=== PATIENT | female | born 1980 | race Caucasian/White ===

== ENCOUNTER 2020-03-13 15:20 | Emergency (ER) | payer MEDICAID ==
[~2020-03-13] VITALS: Ht 154.9 cm; Wt 93.4 kg
[2020-03-13 15:26] VITALS: BP 110/60
--- NOTE | 2020-03-13 15:30 | NUR ---
WAIT AT LOBBY. HANDED ON URINE CUP.
--- NOTE | 2020-03-13 15:44 | NUR ---
PT AMBULATED TO BED 4 WITH STEADY GAIT. RN AT BEDSIDE.
--- NOTE | 2020-03-13 15:53 | NUR ---
39 YO FEMALE PRESENTS WITH 19 WKS OF C/O URGENCY, FREQUENCY, AND BURNING SENSATION OF URINATION, FEVER/CHILLS, LEFT FLANK PAIN/TENDERNESS FOR 2 DAYS. CVAT POSITIVE ON LEFT FLANK AREA. DENIES HEMATURIA OR DYSURIA. DENIES HX OF KIDNEY STONES, VAGINAL BLEEDING OR ABNORMAL DISCHARGE. REPORTS A0, UNKNOWN VENKATA. LMP:10/31/2019. PMH: HYPOTHYROIDISM
[2020-03-13] MEDS ORDERED: cefTRIAXone 1,000 MG in LIDOCAINE MPF 1% 2.1 ML IM ONE (16:05)
[2020-03-13] MEDS ORDERED: ACETAMINOPHEN 325 MG TAB PO ONE (16:05)
[2020-03-13] MEDS ORDERED: cefTRIAXone 1,000 MG VIAL ONE (16:14)
[2020-03-13] MEDS ORDERED: LIDOCAINE MPF 1% 5 ML ONE (16:16)
[2020-03-13] MEDS ORDERED: ACETAMINOPHEN EXTRA STRENGTH 500 MG TAB PO ONE (16:20)
--- NOTE | 2020-03-13 16:55 | NUR ---
Patient discharged with v/s stable. Written and verbal after care instructions given and explained. Patient alert, oriented and verbalized understanding of instructions. Ambulatory with steady gait. All questions addressed prior to discharge. ID band removed. Patient advised to follow up with PMD. Rx of MACROBID AND TYLENOL given. Patient educated on indication of medication including possible reaction and side effects. Opportunity to ask questions provided and answered.
[2020-03-13 17:00] VITALS: BP 127/68
[2020-03-13] MEDS ORDERED: NITROFURANTOIN 100 MG CAP PO SCH (17:00)
== END 2020-03-13 16:55 | disposition home or self-care (01) ==
LOC: MED 15:20
DX: N39.0 Urinary tract infection, site not specified (principal); E03.9 Hypothyroidism, unspecified; Z98.890 Other specified postprocedural states; Z90.49 Acquired absence of other specified parts of digestive tract
CPT/HCPCS: 81002; 81025; 96372; 99283; J0696; J2001

== ENCOUNTER 2020-05-12 11:28 | Observation (INO) | payer MEDICAID ==
[~2020-05-12] VITALS: Ht 162.6 cm; Wt 99.8 kg
[2020-05-12 12:00] VITALS: BP 120/71
[2020-05-12] MEDS ORDERED: LEVO0.2T5 PO (12:35)
[2020-05-12] MEDS ORDERED: PANTOPRAZOLE 40 MG TABEC PO ONE (13:00)
[2020-05-12] MEDS ORDERED: DICYCLOMINE HCL LIQUID 20 MG, ALUMINUM HYD/MAG/SIMETHICONE 30 ML, LIDOCAINE VISCOUS 2% ... PO SCH ×3 (13:45)
[2020-05-12] MEDS ORDERED: ONDANSETRON 4 MG/2 ML VIAL IVP PRN (13:55)
[2020-05-12] MEDS ORDERED: MORPHINE SULFATE 5 MG/ML VIAL IVP PRN (13:55)
[2020-05-12] MEDS ORDERED: LACTATED RINGERS 1,000 ML IV SCH (13:55)
[2020-05-12 14:19] LABS: BASOPHILS # (AUTO) 0.1 K/uL (0.00-0.22); BASOPHILS % (AUTO) 0.5 % (0.0-2.0); EOSINOPHILS # (AUTO) 0.1 K/uL (0-0.4); EOSINOPHILS % (AUTO) 0.6 % (0.0-4.0); HEMATOCRIT 33.5 % (36-48); HEMOGLOBIN 10.7 g/dL (12.0-16.0); LYMPHOCYTES # (AUTO) 2.5 K/uL (2.5-16.5); LYMPHOCYTES % (AUTO) 19.9 % (20.5-51.1); MEAN CORPUSCULAR HEMOGLOBIN 25 pg (27-31); MEAN CORPUSCULAR HGB CONC 32 g/dL (33-37); MEAN CORPUSCULAR VOLUME 78.3 fL (80-94); MONOCYTES # (AUTO) 0.9 K/uL (0.8-1.0); MONOCYTES % (AUTO) 7.2 % (1.7-9.3); NEUTROPHILS # (AUTO) 8.8 K/uL (1.8-7.7); NEUTROPHILS % (AUTO) 71.8 % (42.2-75.2); PLATELET COUNT (AUTO) 336 K/uL (140-450); RED BLOOD CELL COUNT(AUTO) 4.28 MIL/uL (4.20-5.40); RED CELL DISTRIBUTION WIDTH 19.6 % (11.6-13.7); WHITE BLOOD COUNT (AUTO) 12.3 K/uL (4.8-10.8)
[2020-05-12] MEDS ORDERED: MORPHINE SULFATE 10 MG/ML VIAL ONE (14:27)
[2020-05-12 14:34] LABS: APPEARANCE,URINE CLEAR (CLEAR); BILIRUBIN,URINE NEGATIVE (NEGATIVE); BLOOD, URINE TRACE-I (NEGATIVE); COLOR,URINE YELLOW (YELLOW); LEUKOCYTE ESTERASE ,URINE 1+ (NEGATIVE); NITRITE, URINE NEGATIVE (NEGATIVE); PH,URINE 6.5 (5.0-9.0); UGLUCOSE NEGATIVE (NEGATIVE)
[2020-05-12 14:39] LABS: ALBUMIN 2.6 g/dL (3.4-5.0); ANION GAP 15.3 (8-16); CARBON DIOXIDE 21.3 mmol/L (21-32); CREATININE 0.6 mg/dL (0.6-1.3); POTASSIUM 3.6 mmol/L (3.5-5.1); TOTAL BILIRUBIN 0.3 mg/dL (0.0-1.0)
[2020-05-12 14:47] LABS: RBC,URINE 0-5 /HPF (0-5)
[2020-05-13] MEDS ORDERED: PANTOPRAZOLE 40 MG TABEC PO SCH (09:00)
== END 2020-05-12 16:10 | disposition home or self-care (01) ==
LOC: MLD 11:28
PROVIDERS: ADMIT Obstetrics & Gynecology; ATTEND Obstetrics & Gynecology
DX: O99.612 Diseases of the digestive system complicating pregnancy, second trimester (principal); K21.9 Gastro-esophageal reflux disease without esophagitis; O34.219 Maternal care for unspecified type scar from previous cesarean delivery; O09.522 Supervision of elderly multigravida, second trimester; Z3A.27 27 weeks gestation of pregnancy
CPT/HCPCS: 36415; 59025; 80053; 81001; 85025; 87086; 96374; 96375; G0378; J2270; J2405

== ENCOUNTER 2020-07-24 06:05 | Inpatient (IN) | payer MEDICAID, SELFPAY ==
[~2020-07-24] VITALS: Ht 154.9 cm; Wt 108.0 kg
[~2020-07-24 06:05] MED LIST: LEVO0.2T5 PO
[2020-07-24] MEDS ORDERED: METHYLERGONOVINE 0.2 MG/ML AMP IM PRN ×2 (06:35→13:20)
[2020-07-24 06:58] VITALS: BP 121/78
[2020-07-24 07:08] LABS: BASOPHILS # (AUTO) 0.1 K/uL (0.00-0.22); BASOPHILS % (AUTO) 0.7 % (0.0-2.0); EOSINOPHILS # (AUTO) 0.1 K/uL (0-0.4); EOSINOPHILS % (AUTO) 1.1 % (0.0-4.0); HEMATOCRIT 32.8 % (36-48); HEMOGLOBIN 10.5 g/dL (12.0-16.0); LYMPHOCYTES # (AUTO) 2.1 K/uL (2.5-16.5); LYMPHOCYTES % (AUTO) 21.7 % (20.5-51.1); MEAN CORPUSCULAR HEMOGLOBIN 25 pg (27-31); MEAN CORPUSCULAR HGB CONC 32 g/dL (33-37); MEAN CORPUSCULAR VOLUME 77.2 fL (80-94); MONOCYTES # (AUTO) 0.7 K/uL (0.8-1.0); MONOCYTES % (AUTO) 7.9 % (1.7-9.3); NEUTROPHILS # (AUTO) 6.5 K/uL (1.8-7.7); NEUTROPHILS % (AUTO) 68.6 % (42.2-75.2); PLATELET COUNT (AUTO) 293 K/uL (140-450); RED BLOOD CELL COUNT(AUTO) 4.25 MIL/uL (4.20-5.40); RED CELL DISTRIBUTION WIDTH 18.3 % (11.6-13.7); WHITE BLOOD COUNT (AUTO) 9.5 K/uL (4.8-10.8)
[2020-07-24 07:21] LABS: ALBUMIN 2.3 g/dL (3.4-5.0); ANION GAP 18.4 (8-16); CARBON DIOXIDE 19.2 mmol/L (21-32); CREATININE 0.7 mg/dL (0.6-1.3); POTASSIUM 3.6 mmol/L (3.5-5.1); TOTAL BILIRUBIN 0.5 mg/dL (0.0-1.0)
[2020-07-24 07:24] LABS: BILIRUBIN,URINE NEGATIVE (NEGATIVE); BLOOD, URINE TRACE-L (NEGATIVE); COLOR,URINE YELLOW (YELLOW); LEUKOCYTE ESTERASE ,URINE 3+ (NEGATIVE); NITRITE, URINE NEGATIVE (NEGATIVE); UGLUCOSE NEGATIVE (NEGATIVE)
[2020-07-24] MEDS: LACTATED RINGERS 1,000 ML IV SCH ×2 (07:27→11:35)
[2020-07-24] MEDS ORDERED: CITRIC ACID/SODIUM CITRATE 30 ML UDC PO SCH (07:30)
[2020-07-24 07:37] LABS: RBC,URINE 0-5 /HPF (0-5)
[2020-07-24 07:38] LABS: APPEARANCE,URINE HAZY (CLEAR)
--- NOTE | 2020-07-24 08:34 | NUR ---
PATIENT HAS BEEN SCREENED AND CATEGORIZED LOW NUTRITION RISK. PATIENT WILL BE SEEN WITHIN 7 DAYS OF ADMISSION. 07/30/[address]
[2020-07-24] MEDS ORDERED: MORPHINE PRES FREE 10 MG/10 ML AMP IV ONE ×2 (12:22→13:02)
[2020-07-24] MEDS ORDERED: BUPIVACAINE/DEXT 0.75% SPINAL 2 ML AMP INJ ONE (12:23)
[2020-07-24] MEDS ORDERED: MIDAZOLAM 2 MG/2 ML VIAL ONE (13:03)
[2020-07-24] MEDS ORDERED: oxyCODONE/APAP 5/325 MG 1 TAB TAB PO PRN (13:20)
[2020-07-24] MEDS ORDERED: MAGNESIUM CITRATE 300 ML BTL PO SCH (13:20)
[2020-07-24] MEDS ORDERED: IBUPROFEN 800 MG TAB PO PRN (13:20)
[2020-07-24] MEDS ORDERED: TEMAZEPAM 15 MG CAP PO PRN (13:20)
[2020-07-24] MEDS ORDERED: KETOROLAC 30 MG/ML VIAL IVP PRN (13:20)
[2020-07-24] MEDS ORDERED: HYDROmorphone 1 MG/ML AMP IVP PRN (13:50)
[2020-07-24] MEDS ORDERED: diphenhydrAMINE 50 MG/ML VIAL IVP PRN ×2 (13:50)
[2020-07-24] MEDS ORDERED: OXYTOCIN 20 UNITS in LACTATED RINGERS 1,000 ML IV SCH (13:50)
[2020-07-24] MEDS ORDERED: ONDANSETRON 4 MG/2 ML VIAL IVP PRN ×2 (13:50)
[2020-07-24] MEDS ORDERED: NALBUPHINE 10 MG/ML AMP IVP PRN (13:50)
[2020-07-24] MEDS ORDERED: MEPERIDINE 25 MG/ML SYR IVP PRN (13:50)
[2020-07-24] MEDS ORDERED: NALOXONE 0.4 MG/ML VIAL IVP PRN ×3 (13:50)
[2020-07-24] MEDS ORDERED: OXYTOCIN 20 UNITS/LR PREMIX 1,000 ML IV ONE (14:07)
[2020-07-24] MEDS: KETOROLAC 30 MG/ML VIAL IM/IVP SCH (17:53)
[2020-07-24] MEDS: OXYTOCIN 20 UNITS in LACTATED RINGERS 1,000 ML IV SCH (20:43)
[2020-07-24] MEDS: DOCUSATE SOD/SENNA 50/8.6 MG 1 TAB PO SCH (21:00)
[2020-07-25] MEDS: KETOROLAC 30 MG/ML VIAL IM/IVP SCH ×2 (00:10→06:13)
[2020-07-25] MEDS ORDERED: OXYTOCIN 20 UNITS/LR PREMIX 1,000 ML IV ONE (04:54)
[2020-07-25] MEDS: OXYTOCIN 20 UNITS in LACTATED RINGERS 1,000 ML IV SCH (05:01)
[2020-07-25] MEDS: LEVOTHYROXINE 0.05 MG TAB PO SCH (06:14)
[2020-07-25] MEDS: LEVOTHYROXINE 0.1 MG TAB PO SCH (06:14)
[2020-07-25 06:45] LABS: BASOPHILS # (AUTO) 0.1 K/uL (0.00-0.22); EOSINOPHILS # (AUTO) 0.1 K/uL (0-0.4); EOSINOPHILS % (AUTO) 1.1 % (0.0-4.0); HEMOGLOBIN 9.9 g/dL (12.0-16.0); LYMPHOCYTES # (AUTO) 1.6 K/uL (2.5-16.5); LYMPHOCYTES % (AUTO) 16.4 % (20.5-51.1); MEAN CORPUSCULAR HEMOGLOBIN 25 pg (27-31); MEAN CORPUSCULAR HGB CONC 32 g/dL (33-37); MEAN CORPUSCULAR VOLUME 77.7 fL (80-94); MONOCYTES # (AUTO) 0.7 K/uL (0.8-1.0); MONOCYTES % (AUTO) 7.4 % (1.7-9.3); NEUTROPHILS # (AUTO) 7.4 K/uL (1.8-7.7); NEUTROPHILS % (AUTO) 74.1 % (42.2-75.2); PLATELET COUNT (AUTO) 277 K/uL (140-450); RED BLOOD CELL COUNT(AUTO) 3.99 MIL/uL (4.20-5.40); RED CELL DISTRIBUTION WIDTH 17.8 % (11.6-13.7)
[2020-07-25] MEDS: SIMETHICONE 80 MG TAB.CHEW PO PRN ×2 (08:59→17:16)
[2020-07-25] MEDS: oxyCODONE/APAP 5/325 MG 1 TAB TAB PO PRN ×2 (17:16→21:44)
[2020-07-25] MEDS: DOCUSATE SOD/SENNA 50/8.6 MG 1 TAB PO SCH (21:01)
[2020-07-26] MEDS ORDERED: CAMERA MC ONE (01:34)
[2020-07-26] MEDS: oxyCODONE/APAP 5/325 MG 1 TAB TAB PO PRN (01:47)
[2020-07-26] MEDS: SIMETHICONE 80 MG TAB.CHEW PO PRN ×2 (01:49→08:13)
[2020-07-26] MEDS: LEVOTHYROXINE 0.05 MG TAB PO SCH (06:28)
[2020-07-26] MEDS: LEVOTHYROXINE 0.1 MG TAB PO SCH (06:28)
[2020-07-26] MEDS ORDERED: FERR325E14 PO (12:59)
[2020-07-26] MEDS ORDERED: IBUP-2213 PO (12:59)
[2020-07-26] MEDS ORDERED: ACET-5629 PO (13:01)
== END 2020-07-26 16:45 | disposition home or self-care (01) | DRG 540 ==
LOC: OBSVTOIN 06:05 → MLD 06:05 → MFCC 15:41
PROVIDERS: ADMIT Obstetrics & Gynecology; ATTEND Obstetrics & Gynecology
PROC: 0UB70ZZ Excision of Bilateral Fallopian Tubes, Open Approach (ICD-10-PCS; 2020-07-24)
PROC: 3E0234Z Introduction of Serum, Toxoid and Vaccine into Muscle, Percutaneous Approach (ICD-10-PCS; 2020-07-24)
PROC: 10D00Z1 Extraction of Products of Conception, Low, Open Approach (ICD-10-PCS; principal; 2020-07-24 12:00)
DX: O34.211 Maternal care for low transverse scar from previous cesarean delivery (principal); Z3A.38 38 weeks gestation of pregnancy; Z37.0 Single live birth; Z30.2 Encounter for sterilization; Z23 Encounter for immunization; Z20.822 Contact with and (suspected) exposure to COVID-19
CPT/HCPCS: 36415; 51702; 80053; 81001; 85025; 86592; 86886; 86900; 86901; 87086; 88302; 90715; 96361; 96374; J0690; J1885; J2250; J2270; J2590; J3490; J7060; J7120